=== PATIENT | female | born 1995 | race Caucasian/White ===

== ENCOUNTER 2024-06-14 12:27 | Day surgery (SDC) | payer MEDICAID, SELFPAY ==
--- NOTE | 2024-06-14 12:47 | US_ITS ---
[address] [address] Patient Name: LILLY VASQUEZ MRN: [id number] date: 1995 Sex: F Assigned Patient Location: [place] Current Patient Location: [place] Accession/Order Number: [id number] Exam Date: 06/14/2024 12:50 Report Date: 06/14/2024 13:42 At the request of: MARIAM BECKER Procedure: US biopsy FNA EXAMINATION: US biopsy FNA HISTORY: thyroid nodule COMPARISON: No relevant comparison available. TECHNIQUE: After obtaining informed consent, an ultrasound-guided biopsy was performed in the usual sterile manner. FINDINGS: IMAGING: Ultrasound BIOPSY NEEDLE: 25-gauge 2 inch SPECIMEN TYPE, #, LOCATION: 3 fine-needle aspirates, 1 cm right thyroid hypoechogenic nodule MEDICATION: 3 cc 1% buffered lidocaine COMPLICATIONS: None. LABORATORY: Pathology and molecular studies OTHER: Negative. US/US biopsy FNA IMPRESSION: Uneventful ultrasound guided biopsy. The patient was instructed to obtain follow up care and biopsy results from the referring physician. Electronically authenticated by: MAT MTZ Date: 06/14/2024 13:42
[2024-06-14 13:25] VITALS: BP 100/73; PULSE 73; O2SAT 98
[2024-06-14] MEDS: LIDOCAINE HCL 10 ML, SODIUM BICARBONATE 1 MEQ INJ (13:25)
--- NOTE | 2024-06-14 14:47 | SUR.PREOP ---
06/03/24 Pt instructed on procedure, date, time, and prep.
== END 2024-06-14 13:50 | disposition home or self-care (01) ==
LOC: US 12:34
PROVIDERS: Radiology Diagnostic Radiology; PCP Nurse Practitioner Family; Visit Provider Otolaryngology
DX: E04.1 Nontoxic single thyroid nodule (principal)
CPT/HCPCS: 10005; 88108; 88172

== ENCOUNTER 2024-06-21 13:55 | Outpatient (OUT) | payer MEDICAID, SELFPAY ==
--- OUTSIDE RECORDS SUMMARY | 2024-06-21 14:11 | XMS_ITS | CCD ---
Author Organization [facility] Care Team Providers Care Gas Meter Checker Name Role Phone MD Kamaljit [facility] Primary Care Provider DO Cody Evangelista Emergency Provider [phone] B[place]DEN [place] Referring Unavailable KAMALJIT DELANEY Primary Care Unavailable BRAYDEN FALLON Attending Unavailable KAMALJIT DELANEY Annalisa Referring Unavailable KAMALJIT, [facility] Primary Care Unavailable BRAYDEN FALLON Referring Unavailable KAMALJIT DELANEY Fang Primary Care Unavailable Kamaljit TEIXEIRA [facility] Primary Care Provider Merrill PYTHON DEVELOPER, Analisa Gann Unavailable ANALISA LARA Attending Unavailable ANALISA LARA Referring Unavailable ROSMERY BECKER Attending Unavailable ANALISA LARA Referring Unavailable Kamaljit Delaney Fang Primary Care Unavailable MD Kamaljit Delaney Primary Care Provider MD Davis Garcia V Attending Provider [phone] Davis Garcia V Attending Unavailable Davis Garcia V Admitting Unavailable Kamaljit [facility] Primary Care Unavailable Allergies Allergy Classification Reported Allergen(s) Allergy Type Date of Onset Reaction(s) Facility (3 sources) Acetaminophen Drug Allergy 3 [facility] (3 sources) Lamotrigine Allergy to substance 3 [facility] (3 sources) Sertraline Drug Allergy 3 Rash [facility] Medications Current Medications Medication Drug Class(es) Dates Sig (Normalized) Sig (Original) atenolol 25 mg oral tablet (5 sources) beta-Adrenergic Meghann Start: 10-09-2017 take 12.5 mg by mouth twice daily Atenolol Active 12.5 MG PO Twice daily October 09, 2017 1:00am take 0.5 tablet by mouth in the morning atenolol (Tenormin) 25 MG tablet take 1/2 tablet by mouth IN THE MORNING and take 1/2 tablet by mouth BEFORE BEDTIME Active dicyclomine hydrochloride 20 mg oral tablet (2 sources) Anticholinergic Start: 03-25-2022 take 20 mg by mouth four times daily Dicyclomine Active 20 MG PO Four times daily March 25, 2022 12:00am methylPREDNISolone (3 sources) Corticosteroid Start: 04-13-2023 End: 05-31-2024 methylPREDNISolone (Medrol Dospak) 4 MG tablets Indications: Sinus tarsi syndrome of right foot Take as directed on package. 21 tablet 04/13/2023 05/31/2024 Discontinued (Therapy completed) Start: 04-13-2023 methylPREDNISo lone (Medrol Dospak) 4 MG tablets Indications: Sinus tarsi syndrome of right foot Take as directed on package. 21 tablet 04/13/2023 Active ondansetron 4 mg disintegrating oral tablet (2 sources) Serotonin-3 Receptor Antagonist Start: 03-25-2022 Ondansetron Active 4 MG PO every 6 to 8 hours March 25, 2022 12:00am Completed/Discontinued Medications Medication Drug Class(es) Dates Sig (Normalized) Sig (Original) famotidine 20 mg oral tablet (2 sources) Histamine-2 Receptor Antagonist Start: 11-21-2017 End: 04-09-2018 take 1 tablet by mouth twice daily Famotidine (Pepcid) 20 mg Tablet Discontinued 20 MG PO Twice daily November 21, 2017 12:00am April 09, 2018 12:12pm promethazine hydrochloride 25 mg oral tablet (2 sources) Phenothiazine Start: 10-09-2017 End: 11-21-2017 take 12.5 mg by mouth every four to six hours Promethazine Discontinued 12.5 MG PO EVERY 4-6 HOURS October 09, 2017 1:00am November 21, 2017 12:10am 24 hr venlafaxine 37.5 mg extended release oral capsule (2 sources) Serotonin and Norepinephrine Reuptake Inhibitor Start: 04-13-2018 End: 03-25-2022 take 37.5 mg by mouth once daily Venlafaxine Discontinued 37.5 MG PO Daily April 13, 2018 12:00am March 25, 2022 6:49pm Problems Active Problems Problem Classification Problem Date Documented Da te Episodic/Chronic Abdominal pain (2 sources) Abdominal pain; Translations: [Unspecified abdominal pain] 03-25-2022 Episodic Acute and chronic tonsillitis (2 sources) Hypertrophy of tonsils; Translations: [Hypertrophy of tonsils] 05-31-2024 Chronic Anxiety disorders (3 sources) Anxiety state; Translations: [Generalized anxiety disorder] Onset: 3 04-13-2023 Chronic Cancer of cervix (3 sources) Low grade squamous intraepithelial lesion on cervical Papanicolaou smear; Translations: [Low grade squamous intraepithelial lesion on cytologic smear of cervix (LGSIL)] Onset: 4 05-23-2024 Episodic Cardiac and circulatory congenital anomalies (3 sources) Congenital subaortic stenosis; Translations: [Congenital subaortic stenosis] Onset: 8 05-23-2024 Chronic Conduction disorders (3 sources) Long QT syndrome; Translations: [Long QT syndrome] Onset: 0 04-13-2023 Chronic Contraceptive and procreative management (1 source) Presence of (intrauterine) contraceptive device; Translations: [Presence of (intrauterine) contraceptive device] Onset: 4 Episodic Deficiency and other anemia (3 sources) Iron deficiency anemia; Translations: [Iron deficiency anemia, unspecified] Onset: 4 05-23-2024 Episodic Esophageal disorders (3 sources) Gastroesophageal reflux disease without esophagitis; Translations: [Gastro-esophageal reflux disease without esophagitis] Onset: 4 05-23-2024 Chronic Headache; including migraine (3 sources) Migraine without aura, not refractory ; Translations: [Migraine without aura, not intractable, without status migrainosus] Onset: 4 05-23-2024 Chronic Malaise and fatigue (3 sources) Fatigue; Translations: [Chronic fatigue, unspecified] Onset: 1 04-13-2023 Chronic Malaise and fatigue (2 sources) Fatigue; Translations: [Other fatigue] 10-09-2017 Episodic Mood disorders (11 sources) Recurrent major depression; Translations: [Major depressive disorder, recurrent, unspecified] Onset: 0 04-10-2018 Chronic Nausea and vomiting (2 sources) Nausea; Translations: [Nausea] 10-09-2017 Episodic Nonspecific chest pain (5 sources) Atypical chest pain; Translations: [Other chest pain] Onset: 8 11-21-2017 Episodic Nutritional deficiencies (3 sources) Vitamin D deficiency; Translations: [Vitamin D deficiency, unspecified] Onset: 4 05-23-2024 Chronic Other and ill-defined heart disease (3 sources) Cardiomegaly; Translations: [Cardiomegaly] Onset: 3 04-13-2023 Chronic Other gastrointestinal disorders (2 sources) Oropharyngeal dysphagia; Translations: [Dysphagia, oropharyngeal phase] 05-31-2024 Episodic Other lower respiratory disease (2 sources) Dyspnea; Translations: [Dyspnea, unspecified] 10-09-2017 Episodic Other nervous system disorders (3 sources) Neuropathy; Translations: [Polyneuropathy, unspecified] Onset: 3 04-13-2023 Chronic Other nervous system disorders (3 sources) Chronic pain; Translations: [Other chronic pain] Onset: 3 04-13-2023 Chronic Other nutritional; endocrine; and metabolic disorders (3 sources) Morbid obesity; Translations: [Morbid (severe) obesity due to excess calories] Onset: 3 04-13-2023 Chronic Other nutritional; endocrine; and metabolic disorders (3 sources) 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; 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] Onset: 3 04-13-2023 Chronic Residual codes; unclassified (2 sources) Obstructive sleep apnea syndrome; Translations: [Obstructive sleep apnea (adult) (pediatric)] 05-31-2024 Chronic Thyroid disorders (2 sources) Thyroid nodule; Translations: [Nontoxic single thyroid nodule] 05-31-2024 Chronic Unclassified (1 source) Gynecologic Exam Onset: 4 Past or Other Problems Problem Classification Problem Date Documented Da te Episodic/Chronic Deficiency and other anemia (3 sources) Anemia; Translations: [Anemia, unspecified] Onset: 04-13-2023 04-13-2023 Episodic Fluid and electrolyte disorders (3 sources) Dehydration; Translations: [Dehydration] Onset: 03-12-2018 04-13-2023 Episodic Residual codes; unclassified (3 sources) H/O: heart disorder; Translations: [Personal history of other specified conditions] Onset: 10-10-2022 05-23-2024 Episodic Viral infection (3 sources) Disease caused by 2019-nCoV; Translations: [COVID-19] Onset: 09-18-2020 04-13-2023 Episodic Results Test Name Value Interpretation Reference Range Facility [facility] 06-14-2024 L Specimen: [id number] Received: 06/16/24 Status: CHUCHO Agustin Num: [id number] Spec Type: Cytology Subm Dr: Davis Garcia MD Tissues: A FNA SLIDES NOPATH (LEFT THYROID MID NODULE) Procedures: Cyto Int and Re, PAPSTN/5 Age/ Patient Sex Location Account Attending Physician Marielos Hernandez 29/F [place] [id number] Davis Garcia MD SPEC NUM: [id number] RECD: 06/16/24 STATUS: CHUCHO AGUSTIN NUM: [id number] MELONY: 06/14/[address]: Davis Garcia MD ENTERED: 06/16/24 [facility] DR: Kelsie,ROSMERY Posada MD SPEC TYPE: Cytology DEPT: [facility] ENTERED BY: [id number] RECV BY: [id number] ORDERED: Cyto Int and Re, PAPSTN/5 ORDERED: Cyto Int and Re, PAPSTN/5 Pathological Diagnosis FNA of left thyroid nodule (4 prepared smears and 30 mL of pale pink fluid): Bloody smears and fluid with inflammatory cells degenerated foamy macrophages and red cells consistent with benign cyst fluid. No thyroid epithelial cells are present. [place] category I-nondiagnostic. Clinical Information Left Thyroid Nodule Gross Description Received is 30 ml palepink slightly cloudy fixed fluid for cytology said to have been obtained as Left Thyroid Mid Nodule. ThinPrep preparations are prepared for microscopic examination. Also received are 4 spray fixed smeared slides for pap and a Veracyte vial stored at -20 for microscopic examination. (MG/nh) Specimen: [id number] Received: 06/16/24 Status: CHUCHO Vamsi Num: [id number] Spec Type: Cytology Subm Dr: Davis Garcia MD Tissues: A FNA SLIDES NOPATH (LEFT THYROID MID NODULE) Procedures: Cyto Int and Re, PAPSTN/5 Patient: Marielos Hernandez [id number] (Continued) Specimen: [id number] Received: 06/16/24 (Continued) Signed (signature on file) Claudio Espino MD 06/16/24 1100 Specimen: [id number] Received: 06/16/24 Status: CHUCHO Vamsi Num: [id number] Spec Type: Cytology Subm Dr: Davis Garcia MD Tissues: A FNA SLIDES NOPATH (LEFT THYROID MID NODULE) Procedures: Cyto Int and Re, PAPSTN/5 Patient: Marielos Hernandez [id number] (Continued) Specimen: [id number] Received: 06/16/24 (Continued) CPT Codes 80 8172 and 88 108 Specimen: [id number] Received: 06/16/24 Status: CHUCHO Agustin Num: [id number] Spec Type: Cytology Subm Dr: Davis Garcia MD Tissues: A FNA SLIDES NOPATH (LEFT THYROID MID NODULE) Procedures: Cyto Int and Re, PAPSTN/5 Patient: Marielos Hernandez [id number] (Continued) Signed (signature on file) Claudio Espino MD 06/16/24 1100 Normal [facility] Consent Formson 06-10-2024 Consent Forms [id number] 1.00OTGTIFF Normal [facility] CMP Standardon 05-25-2024 eGFR Non AA >60 Invalid Interpretation Code [facility] Comment on above: Performed By: #### 1 [id number], [id number], 8785801, 4860769, 9320837, 1959163, 3016004 #### [facility] (DEFAULT) [address] [place] [address] eGFR AA >60 Invalid Interpretation Code [facility] Comment on above: Performed By: #### 1 [id number], [id number], 9693301, 5900255, 9918279, 1880591, 9485708 #### [facility] (DEFAULT) [address] [place] [address] 92239 Albumin [Mass/Vol] 4.0 g/dL Normal 3.5-5.0 [facility] Comment on above: Performed By: #### 1 [id number], [id number], 2780225, 7799045, 8882055, 7360941, 7289765 #### [facility] (DEFAULT) [address] [place] [address] 28665 Albumin/Globulin [Mass ratio] 1.2 {ratio} Low 1.4-2.6 [facility] Comment on above: Performed By: #### 1 [id number], [id number], 3361549, 0351134, 3835823, 1085603, 1159012 #### [facility] (DEFAULT) [address] [place] [address] Alk Phos 82 IU/L Normal 32-91 [facility] Comment on above: Performed By: #### 1 [id number], 1428402722, 7736924, 8905058, 3791475, 1722179, 4797876 #### [facility] (DEFAULT) [address] [place] [address] ALT [Catalytic activity/Vol] 22.0 U/L Normal 14.0-54.0 [facility] Comment on above: Performed By: #### 1 [id number], [id number], 6077169, 4337586, 8012546, 8377116, 2474758 #### [facility] (DEFAULT) [address] [place] [address] Anion gap [Moles/Vol] 11.9 mmol/L Normal 5.0-19.0 [facility] Comment on above: Performed By: #### 1 [id number], 0412271265, 1095057, 8967473, 6995528, 3467922, 5735848 #### [facility] (DEFAULT) [address] [place] [address] AST [Catalytic activity/Vol] 18 U/L Normal 15-41 [facility] Comment on above: Performed By: #### 1 [id number], 6736723860, 0904278, 1263616, 0432177, 5861775, 8516515 #### [facility] (DEFAULT) [address] [place] [address] Bili Total 0.4 mg/dL Normal 0.3-1.2 [facility] Comment on above: Performed By: #### 1 [id number], 5295287627, 8982819, 2577605, 4065587, 6633983, 2846913 #### [facility] (DEFAULT) [address] [place] [address] 13049 Calcium [Mass/Vol] 8.8 mg/dL Low 8.9-10.3 [facility] Comment on above: Performed By: #### 1 [id number], 1515382347, 4818502, 0958840, 3203589, 2691703, 8046450 #### [facility] (DEFAULT) [address] [place] [address] 91641 Chloride [Moles/Vol] 103 mmol/L Normal 101-111 [facility] Comment on above: Performed By: #### 1 [id number], 1691053284, 6532031, 6123800, 2349448, 5629600, 0805610 #### [facility] (DEFAULT) [address] [place] [address] CO2 [Moles/Vol] 25 mmol/L Normal 21-32 [facility] Comment on above: Performed By: #### 1 [id number], 1506089795, 0434331, 3407839, 8842000, 6044220, 1501314 #### [facility] (DEFAULT) [address] [place] [address] 94265 Creatinine [Mass/Vol] 0.66 mg/dL Normal 0.60-1.30 [facility] Comment on above: Performed By: #### 1 [id number], 7669983418, 0470202, 1708010, 7155417, 8479231, 7227372 #### [facility] (DEFAULT) [address] [place] [address] 10710 Globulin (S) [Mass/Vol] 3.3 g/dL Normal 1.5-4.3 [facility] Comment on above: Performed By: #### 1 [id number], 9893524487, 1076195, 6711757, 9388274, 8952856, 0805368 #### [facility] (DEFAULT) [address] [place] [address] Glucose [Mass/Vol] 106.0 mg/dL Normal 74.0-118.0 [facility] Comment on above: Performed By: #### 1 [id number], 0749198958, 0398519, 6927930, 1808337, 5980564, 5375199 #### [facility] (DEFAULT) [address] [place] [address] 41744 Osmolality 272 mOsm/L Invalid Interpretation Code [facility] Comment on above: Performed By: #### 1 [id number], 4927969213, 1622190, 0883423, 4838970, 0189431, 8692973 #### [facility] (DEFAULT) [address] [place] [address] 45198 Potassium [Moles/Vol] 3.9 mmol/L Normal 3.6-5.1 [facility] Comment on above: Performed By: #### 1 [id number], 9447123417, 5011911, 5765882, 2448403, 3811110, 6224885 #### [facility] (DEFAULT) [address] [place] [address] 72359 Protein [Mass/Vol] 7.3 g/dL Normal 6.5-8.1 [facility] Comment on above: Performed By: #### 1 [id number], 1499353708, 1499992, 0721321, 3874522, 4599542, 9906880 #### [facility] (DEFAULT) [address] [place] [address] 76472 Sodium [Moles/Vol] 136.0 mmol/L Normal 136.0-144.0 [facility] Comment on above: Performed By: #### 1 [id number], 9816728027, 8200922, 8326654, 6411868, 0024628, 2348271 #### [facility] (DEFAULT) [address] [place] [address] 80951 Urea nitrogen [Mass/Vol] 11 mg/dL Normal 8-26 [facility] Comment on above: Performed By: #### 1 [id number], 1994181651, 8035778, 8128367, 6432824, 4523502, 0069563 #### [facility] (DEFAULT) [address] [place] [address] 15714 Urea nitrogen/Creatinine [Mass ratio] 16.6 mg/mg High 4.6-16.2 [facility] Comment on above: Performed By: #### 1 [id number], 5034538349, 8686068, 0070056, 6643373, 3048845, 7610660 #### [facility] (DEFAULT) [address] [place] [address] 25689 GGTon 05-25-2024 Gamma glutamyl transferase [Catalytic activity/Vol] 29.0 U/L Normal 7.0-50.0 [facility] Comment on above: Performed By: #### 1 [id number], 5949496979, 1898976, 9820314, 8862523, 3845528, 7599373 #### [facility] (DEFAULT) [address] [place] [address] 54038 Iron Levelon 05-25-2024 Iron [Mass/Vol] 26.0 ug/dL Low 28.0-170.0 [facility] Comment on above: Performed By: #### 1 [id number], 4165907024, 5919397, 8686188, 3025391, 2173126, 6915616 #### [facility] (DEFAULT) [address] [place] [address] 60750 LDHon 05-25-2024 LDH 114.0 IU/L Normal 98.0-192.0 [facility] Comment on above: Performed By: #### 1 [id number], 4558679354, 9060148, 1240804, 6362747, 5495532, 9742568 #### [facility] (DEFAULT) [address] [place] [address] 98740 Lipid Panel Standardon 05-25 Cholesterol [Mass/Vol] 180.0 mg/dL Normal 66.0-200.0 [facility] Comment on above: Performed By: #### 1 [id number], 6708274190, 0998376, 1167920, 0548813, 8780965, 4177986 #### [facility] (DEFAULT) [address] [place] [address] 49132 Cholesterol in HDL [Mass/Vol] 34 mg/dL Low 40-71 [facility] Comment on above: Performed By: #### 1 [id number], 3384744789, 3310816, 9554262, 1361770, 6392064, 9514985 #### [facility] (DEFAULT) [address] [place] [address] 31272 Cholesterol in LDL [Mass/Vol] 125 mg/dL High 1-100 [facility] Comment on above: Performed By: #### 1 [id number], 6798245029, 9590952, 8788876, 0351394, 5181085, 7339714 #### [facility] (DEFAULT) [address] [place] [address] 97263 Cholesterol.total/Chol esterol in HDL [Mass ratio] 5.2 {ratio} High 0.0-4.5 [facility] Comment on above: Performed By: #### 1 [id number], 8023583429, 6741570, 4242542, 1870321, 6968945, 5929319 #### [facility] (DEFAULT) [address] [place] [address] 86487 Triglyceride [Mass/Vol] 105.0 mg/dL Normal 0.0-150.0 [facility] Comment on above: Performed By: #### 1 [id number], 7755181483, 8216843, 0097252, 1734036, 4898330, 7035452 #### [facility] (DEFAULT) [address] [place] [address] 86135 VLDL. 21 mg/dL Normal 5-40 [facility] Comment on above: Performed By: #### 1 [id number], 6929450779, 2684816, 7762305, 9707120, 8606149, 5302711 #### [facility] (DEFAULT) [address] [place] [address] 41230 Phoson 05-25-2024 Phosphate [Mass/Vol] 3.6 mg/dL Normal 2.5-4.6 [facility] Comment on above: Performed By: #### 1 [id number], 9522977389, 6145223, 0382139, 2597437, 3746636, 1837982 #### [facility] (DEFAULT) [address] [place] [address] 34850 US THYROIDon 05-25-2024 US THYROID US - US NECK THYROID SOFT TISSUE Reason for exam: Enlarged thyroid Technique: Ultrasound of the thyroid and lower neck was performed, with color flow Doppler and spectral analysis. Comparison: None. FINDINGS: Right lobe: Normal size and parenchymal echogenicity.No evidence of any mass, cyst or shadowing calcification. Left lobe: Normal size and parenchymal echogenicity.a hypoechoic, circumscribed nodule is noted in the posterior aspect of the left mid lobe, without shadowing, wider than tall, measuring 1.9 x 0.9 x 0.6 cm. Isthmus: Normal size and parenchymal echogenicity.No evidence of any mass, cyst or shadowing calcification. Lymph nodes: Negative for lymphadenopathy. Measurements: Impression: 1.9 cm left lobe nodule, TI-RADS 4. Recommendation: Fine-needle aspiration biopsy is recommended of the left lobe mass. Reference: ACR white paper 2017. Followup: TR3 lesion: Thyroid US at 1, 3 and 5 years. TR4 lesion: Thyroid US at 1, 2, 3 and 5 years. TR5 lesion: Thyroid ultrasound every year for up to 5 years. Dictated on: 05/25/2024 6:28 PM This report has been electronically signed and approved by the interpreting Radiologist. Electronically Signed Fazal Villanueva M.D. 2024-05-25 18:31:56 Normal Not Available Uric Acidon 05-25-2024 Urate [Mass/Vol] 7.2 mg/dL Normal 2.6-8.0 [facility] Comment on above: Performed By: #### 1 [id number], [id number], 8288873, 6492814, 1278628, 1139706, 1429769 #### [facility] (DEFAULT) [address] [place] [address] Cytologyon 04-05-2024 Cytology Normal [facility] Comment on above: Result Comment: [facility] [address] [place] [address] Gynecologic Cytology Consultation Patient Name:MARIELOS HERNANDEZ:1995 (Age: 28)Gender:FTaken:4Reported:4Physician(s):Marii Fallon M.D. ([phone])Copy To: Rec. #:[id number]: #[id number] Final Cytologic Interpretation ThinPrep Pap Test (Cervical): Satisfactory for evaluation. A transformation zone component is present. NEGATIVE FOR INTRAEPITHELIAL LESION OR MALIGNANCY. cecilia/04/12/2024 Interpretation performed at [facility], [address] [place] [address], License number: [id number]. Electronically Signed Out By NKECHI Li(ASCP) Date of Last Menstrual Period: (None Given) Other Clinical Conditions: Z01.419 Life Enrichment Assistant exam wo/abn findings Source of Specimen ThinPrep Pap Test (Cervical) Thin Prep Pap (ROLLWAY WORKER) Fee Code(s): G0145 The Pap test is a screening test with an inherent, but low, probability of error. The Pap test is primarily effective for the diagnosis and prevention of squamous cell carcinoma. Regular screening is critical for prevention. ThinPrep liquid-based slides, which meet the Supervisor Film Processing criteria for automated screening, have been screened by the [employer] (as of 05/17/07) along with an additional manual rescreening by a residential property tax appraiser and, if indicated, by a pathologist. US PELVIC WITH TRANSVAGINALo n 03-22-2024 US PELVIC WITH TRANSVAGINAL US PELVIC WITH TRANSVAGINAL PELVIC ULTRASOUND HISTORY: IUD (intrauterine device) in place. Heavy cycle with blood clots. COMPARISON: Pelvic ultrasound 04/12/2021 TECHNIQUE: Transabdominal imaging. Transvaginal imaging performed for better delineation of the adnexal and endometrial contents. FINDINGS: Uterus has a normal appearance. Uterus measures 7.0 x 5.5 x 3.2 cm. Endometrium is homogeneous and measures 1.3 cm. IUD is not visualized in the provided sonographic images. Nabothian cysts within the cervix. No uterine fibroids. Right ovary : 3.0 x 3.0 x 2.0 cm. Normal appearance. Doppler flow was present within the ovary. Left ovary : 3.5 x 2.7 x 2.0 cm. Normal appearance. Doppler flow was present within the ovary. There are no appreciable adnexal masses. There is no appreciable free pelvic fluid. __ IMPRESSION: IUD not visualized within the provided sonographic images. Abdominal radiograph could be beneficial to assess if the IUD has been expelled from the body or is intraperitoneal Approved by Resident Davis Prince MD on 03/22/2024 2:14 PM I, Jac Suarez MD have personally reviewed the image(s) and agree with and/or edited the report Finalized by Jac Suarez MD on 03/22/2024 3:35 PM Normal [facility] Albumin [Mass/volume] in Ser um or PlasmaOrdered By: Cody Evangelista on 03-25-2022 Albumin [Mass/Vol] 3.9 g/dL 3.2-5.5 [facility] Automated erythrocytes count in urine sediment (number/area)Ordered By: Cody Evangelista on 03-25-2022 RBC Auto (Urine sed) [#/Area] 3-4 [HPF] 0-4 [facility] Automated leukocytes count i n urine sediment (number/area)Ordered By: Cody Evangelista on 03-25-2022 WBC Auto (Urine sed) [#/Area] 1-2 [HPF] 0-4 [facility] Basophils Auto (Bld) [#/Vol] Ordered By: Cody Evangelista on 03-25-2022 Basophils (Bld) [#/Vol] 0.1 10*3/uL 0.0-0.2 [facility] Basophils/100 WBC Auto (Bld) Ordered By: Cody Evangelista on 03-25-2022 Basophils/100 WBC (Bld) 0.9 % . [facility] Bilirubin Test strip Ql (U)O rdered By: Cody Evangelista on 03-25-2022 Bilirubin Ql (U) Negative Negative [facility] Blood anisocytosis detection Ordered By: Cody Evangelista on 03-25-2022 Anisocytosis Ql (Bld) Slight [facility] Blood hemoglobin measurement (mass/volume)Ordered By: Cody Evangelista on 03-25-2022 Hemoglobin (Bld) [Mass/Vol] 10.7 g/dL 11.8-15.4 [facility] Blood leukocytes automated c ount (number/volume)Ordered By: Cody Evangelista on 03-25-2022 WBC (Bld) [#/Vol] 12.7 10*3/uL 4.5-11.0 [facility] Color Auto (U)Ordered By: Cecil Evangelista on 03-25-2022 Color (U) [place] Yellow [facility] Creatinine and Glomerular fi ltration rate.predicted panel (S/P/Bld)Ordered By: Cody Evangelista on 03-25-2022 Creatinine [Mass/Vol] 0.64 mg/dL 0.44-1.03 [facility] Direct bilirubin measurement Ordered By: Cody Evangelista on 03-25-2022 Bilirubin.direct [Mass/Vol] mg/dL 0.0-0.4 [facility] Eosinophils Auto (Bld) [#/Vo l]Ordered By: Cody Evangelista on 03-25-2022 Eosinophils (Bld) [#/Vol] 0.1 10*3/uL 0.0-0.45 [facility] Eosinophils/100 WBC Auto (Bl d)Ordered By: Cody Evangelista on 03-25-2022 Eosinophils/100 WBC (Bld) 0.4 % . [facility] Erythrocyte distribution wid th Auto (RBC) [Ratio]Ordered By: Cody Evangelista on 03-25-2022 Erythrocyte distribution width (RBC) [Ratio] 16.9 % 11.9-15.3 [facility] Estimated glomerular filtrat ion rate (GFR) non- AmericanOrdered By: Cody Evangelista on 03-25-2022 GFR/1.73 sq M.predicted among non-blacks MDRD (S/P/Bld) [Vol rate/Area] > 60 mL/Min [facility] Globulin Calc (S) [Mass/Vol] Ordered By: Cody Evangelista on 03-25-2022 Globulin (S) [Mass/Vol] 3.0 g/dL [facility] HCG ( test) IA.rapi d Ql (U)Ordered By: Cody Evangelista on 03-25-2022 HCG ( test) Ql (U) Negative [facility] Hematocrit Auto (Bld) [Volum e fraction]Ordered By: Cody Evangelista on 03-25-2022 Hematocrit (Bld) [Volume fraction] 34.7 % 34.0-46.4 [facility] Ketones Auto test strip (U) [Mass/Vol]Ordered By: Cody Evangelista on 03-25-2022 Ketones (U) [Mass/Vol] Negative Negative Fi [facility] Laboratory - Chemistry and C hemistry - challengeOrdered By: Cody Evangelista on 03-25-2022 Lipase [Catalytic activity/Vol] 35.0 U/L 22-51 [facility] Laboratory - Hematology and Cell countsOrdered By: Cody Evangelista on 03-25-2022 Nucleated RBC/100 WBC (Bld) [Ratio] 0.1 % 0-0.5 [facility] Laboratory - UrinalysisOrder ed By: Cody Evangelista on 03-25-2022 Hyaline casts LM Ql (Urine sed) None seen [LPF] 0-8 [facility] Lymphocytes Auto (Bld) [#/Vo l]Ordered By: Cody Evangelista on 03-25-2022 Lymphocytes (Bld) [#/Vol] 2.5 10*3/uL 1.00-4.8 [facility] Lymphocytes/100 WBC Auto (Bl d)Ordered By: Cody Evangelista on 03-25-2022 Lymphocytes/100 WBC (Bld) 19.8 % . [facility] MCH Auto (RBC) [Entitic mass ]Ordered By: Cody Evangelista on 03-25-2022 MCH (RBC) [Entitic mass] 21.2 pg 24.7-34.3 [facility] MCHC Auto (RBC) [Mass/Vol]Or dered By: Cody Evangelista on 03-25-2022 MCHC (RBC) [Mass/Vol] 30.8 g/dL 32.0-35.0 [facility] MCV Auto (RBC) [Entitic vol] Ordered By: Cody Evangelista on 03-25-2022 MCV (RBC) [Entitic vol] 69.0 fL 80-100 [facility] Monocytes Auto (Bld) [#/Vol] Ordered By: Cody Evangelista on 03-25-2022 Monocytes (Bld) [#/Vol] 0.6 10*3/uL 0.0-0.8 [facility] Monocytes/100 WBC Auto (Bld) Ordered By: Cody Evangelista on 03-25-2022 Monocytes/100 WBC (Bld) 5.1 % . [facility] Neutrophils Auto (Bld) [#/Vo l]Ordered By: Cody Evangelista on 03-25-2022 Neutrophils (Bld) [#/Vol] 9.3 10*3/uL 1.8-7.7 [facility] Neutrophils/100 WBC Auto (Bl d)Ordered By: Cody Evangelista on 03-25-2022 Neutrophils/100 WBC (Bld) 73.8 % . [facility] Nitrite Test strip Ql (U)Ord ered By: Cody Evangelista on 03-25-2022 Nitrite Ql (U) Negative Negative [facility] No Panel InformationOrdered By: Cody Evangelista on 03-25-2022 Estimated GFR () > 60 mL/Min [facility] Comment on above: GFR estimated refere nce range: According to KDOQI guidelines, <60 ml/min/1.73m2 is sufficient to diagnose a patient with chronic kidney disease. Microcytosis Slight [facility] Creatinine Clearance (Chem 158.14 [facility] Platelet Estimate Normal Normal [facility] Platelet Morphology Comment Normal Normal [facility] Platelet mean volume Auto (B ld) [Entitic vol]Ordered By: Cody Evangelista on 03-25-2022 Platelet mean volume (Bld) [Entitic vol] 8.2 fL 6.3-10.7 [facility] Platelets Auto (Bld) [#/Vol] Ordered By: Cody Evangelista on 03-25-2022 Platelets (Bld) [#/Vol] 295 10*3/uL 150-450 [facility] Protein Auto test strip (U) [Mass/Vol]Ordered By: Cody Evangelista on 03-25-2022 Protein (U) [Mass/Vol] Negative Negative [facility] Protein [Mass/volume] in Ser um or PlasmaOrdered By: Cody Evangelista on 03-25-2022 Protein [Mass/Vol] 6.9 g/dL 6.1-7.9 [facility] RBC Auto (Bld) [#/Vol]Ordere d By: Cody Evangelista on 03-25-2022 RBC (Bld) [#/Vol] 5.03 10*6/uL 3.60-5.00 [facility] RBC morphologyOrdered By: Cecil Evangelista on 03-25-2022 RBC morphology finding Nom (Bld) N/A [facility] Serum or plasma alanine rodriguez otransferase measurement without P-5'-P (enzymatic activiOrdered By: Cody Evangelista on 03-25-2022 ALT No additional P-5'-P [Catalytic activity/Vol] 28 U/L 10-60 [facility] Serum or plasma albumin/glob ulin mass ratioOrdered By: Cody Evangelista on 03-25-2022 Albumin/Globulin [Mass ratio] 1.3 {ratio} [facility] Serum or plasma alkaline juany sphatase measurement (enzymatic activity/volume)Ordered By: Cody Evangelista on 03-25-2022 ALP [Catalytic activity/Vol] 91 U/L 32-92 [facility] Serum or plasma aspartate am inotransferase measurement (enzymatic activity/volume)Ordered By: Cody Evangelista on 03-25-2022 AST [Catalytic activity/Vol] 16 U/L 10-42 [facility] Serum or plasma calcium diana urement (mass/volume)Ordered By: Cody Evangelista on 03-25-2022 Calcium [Mass/Vol] 9.1 mg/dL 8.2-10.2 [facility] Serum or plasma chloride renate surement (moles/volume)Ordered By: Cody Evangelista on 03-25-2022 Chloride [Moles/Vol] 103 mmol/L 95-114 [facility] Serum or plasma glucose diana urement (mass/volume)Ordered By: Cody Evangelista on 03-25-2022 Glucose [Mass/Vol] 100 mg/dL 70-100 [facility] Comment on above: ADA recommended refe rence range Random Glucose Reference Range is dependent on time and content of last meal. Glucose of more than 200 mg/dL in a nonstressed, ambulatory subject supports the diagnosis of Diabetes Mellitus. Serum or plasma non-glucuron idated bilirubin measurement (mass/volume)Ordered By: Cody Evangelista on 03-25-2022 Bilirubin.indirect [Mass/Vol] TNP [facility] Comment on above: Test not performed Serum or plasma potassium me asurement (moles/volume)Ordered By: Cody Evangelista on 03-25-2022 Potassium [Moles/Vol] 4.2 mmol/L 3.5-5.1 [facility] Serum or plasma sodium measu rement (moles/volume)Ordered By: Cody Evangelista on 03-25-2022 Sodium [Moles/Vol] 136 mmol/L 136-146 [facility] Serum or plasma total biliru bin measurement (mass/volume)Ordered By: Cody Evangelista on 03-25-2022 Bilirubin [Mass/Vol] 0.4 mg/dL 0.3-1.2 [facility] Serum or plasma total carbon dioxide measurement (moles/volume)Ordered By: Cody Evangelista on 03-25-2022 CO2 [Moles/Vol] 24.0 mmol/L 22.0-30.0 [facility] Serum or plasma urea nitroge n measurement (mass/volume)Ordered By: Cody Evangelista on 03-25-2022 Urea nitrogen [Mass/Vol] 11 mg/dL 9-23 [facility] Specific gravity Auto test s trip (U) [Rel density]Ordered By: Cody Evangelista on 03-25-2022 Specific gravity (U) [Rel density] 1.024 1.001-1.030 [facility] Squamous epithelial cells de tection in urine sediment by light microscopyOrdered By: Cody Evangelista on 03-25-2022 Epithelial cells.squamous LM Ql (Urine sed) 3-4 [HPF] 0-2 [facility] Urine bacteria detection by automated methodOrdered By: Cody Evangelista on 03-25-2022 Bacteria Auto Ql (U) 1+ None Seen [facility] Urine clarity by refractomet ry automatedOrdered By: Cody Evangelista on 03-25-2022 Clarity Refractometry automated (U) Clear Clear [facility] Urine glucose measurement by automated test strip (mass/volume)Ordered By: Cody Evangelista on 03-25-2022 Glucose Auto test strip (U) [Mass/Vol] Normal mg/dL Normal [facility] Urine hemoglobin detection b y automated test stripOrdered By: Cody Evangelista on 03-25-2022 Hemoglobin Auto test strip Ql (U) Negative Negative [facility] Urine leukocyte esterase det ection by automated test stripOrdered By: Cody Evangelista on 03-25-2022 Leukocyte esterase Auto test strip Ql (U) Negative Negative [facility] Urobilinogen Auto test strip (U) [Mass/Vol]Ordered By: Cody Evangelista on 03-25-2022 Urobilinogen (U) [Mass/Vol] Normal mg/dL Normal [facility] pH Auto test strip (U)Ordere d By: Cody Evangelista on 03-25-2022 pH (U) 6.5 [pH] 5.0-9.0 [facility] Complete Blood Count with Au to Diffon 10-14-2021 Basophils (Bld) [#/Vol] 0.06 10*3/uL Normal 0.00-0.20 [facility] Comment on above: Performed By: #### C MP, VITD, TSH reflex FT4, CBCAD #### [facility] [address], [place] [id number] Basophils/100 WBC (Bld) 0.7 % Normal [facility] Comment on above: Performed By: #### C MP, VITD, TSH reflex FT4, CBCAD #### [facility] [address], [place] [id number] Eosinophils (Bld) [#/Vol] 0.07 10*3/uL Normal 0.02-0.50 [facility] Comment on above: Performed By: #### C MP, VITD, TSH reflex FT4, CBCAD #### [facility] [address] [place] [id number] Eosinophils/100 WBC (Bld) 0.8 % Normal [facility] Comment on above: Performed By: #### C MP, VITD, TSH reflex FT4, CBCAD #### [facility] [address], [place] [id number] Erythrocyte distribution width (RBC) [Ratio] 16.4 % High 11.0-15.0 [place] [employer] [place] [employer] Comment on above: Performed By: #### C MP, VITD, TSH reflex FT4, CBCAD #### [facility] [address], [place] [id number] Hematocrit (Bld) [Volume fraction] 37.2 % Normal 35.0-47.0 [facility] Comment on above: Performed By: #### C MP, VITD, TSH reflex FT4, CBCAD #### [facility] [address], [place] [id number] Hemoglobin (Bld) [Mass/Vol] 11.1 g/dL Low 11.6-15.5 [facility] Comment on above: Performed By: #### C MP, VITD, TSH reflex FT4, CBCAD #### [facility] [address], [place] [id number] Lymphocytes (Bld) [#/Vol] 2.3 10*3/uL Normal 0.9-3.9 [facility] Comment on above: Performed By: #### C MP, VITD, TSH reflex FT4, CBCAD #### [facility] [address], [place] [id number] Lymphocytes/100 WBC (Bld) 25.3 % Normal [facility] Comment on above: Performed By: #### C MP, VITD, TSH reflex FT4, CBCAD #### [facility] [address], [place] [id number] MCH (RBC) [Entitic mass] 21.9 pg Low 27.0-33.0 [facility] Comment on above: Performed By: #### C MP, VITD, TSH reflex FT4, CBCAD #### [facility] [address], [place] [id number] MCHC (RBC) [Mass/Vol] 29.8 g/dL Low 32.0-36.0 [facility] Comment on above: Performed By: #### C MP, VITD, TSH reflex FT4, CBCAD #### [facility] [address], [place] [id number] MCV (RBC) [Entitic vol] 73 fL Low 80-100 [facility] Comment on above: Performed By: #### C MP, VITD, TSH reflex FT4, CBCAD #### [facility] [address], [place] [id number] Monocytes (Bld) [#/Vol] 0.4 10*3/uL Normal 0.2-0.9 [facility] Comment on above: Performed By: #### C MP, VITD, TSH reflex FT4, CBCAD #### [facility] [address], [place] [id number] Monocytes/100 WBC (Bld) 4.5 % Normal [facility] Comment on above: Performed By: #### C MP, VITD, TSH reflex FT4, CBCAD #### [facility] [address], [place] [id number] Neutrophils (Bld) [#/Vol] 6.3 10*3/uL Normal 1.5-7.8 [facility] Comment on above: Performed By: #### C MP, VITD, TSH reflex FT4, CBCAD #### [facility] [address], [place] [id number] Neutrophils/100 WBC (Bld) 68.4 % Normal [facility] Comment on above: Performed By: #### C MP, VITD, TSH reflex FT4, CBCAD #### [facility] [address], [place] [id number] Platelet mean volume (Bld) [Entitic vol] 10.50 fL Normal 7.50-12.50 [facility] Comment on above: Performed By: #### C MP, VITD, TSH reflex FT4, CBCAD #### [facility] [address], [place] [id number] Platelets (Bld) [#/Vol] 271 10*3/uL Normal 140-400 [facility] Comment on above: Performed By: #### C MP, VITD, TSH reflex FT4, CBCAD #### [facility] [address], [place] [id number] RBC (Bld) [#/Vol] 5.07 10*6/uL Normal 3.90-5.20 [facility] Comment on above: Performed By: #### C MP, VITD, TSH reflex FT4, CBCAD #### [facility] [address], [place] [id number] RDW-SD 42.6 fL Normal 37.0-50.0 [facility] [employer] Comment on above: Performed By: #### C MP, VITD, TSH reflex FT4, CBCAD #### [facility] [address], [place] [id number] WBC (Bld) [#/Vol] 9.2 10*3/uL Normal 3.8-11.0 [facility] [place] [employer] Comment on above: Performed By: #### C MP, VITD, TSH reflex FT4, CBCAD #### [facility] [address], [place] [id number] Comprehensive Metabolic Pane ene 10-14-2021 Albumin [Mass/Vol] 4.5 g/dL Normal 3.6-5.1 [facility] [place] [employer] Comment on above: Performed By: #### C MP, VITD, TSH reflex FT4, CBCAD #### [facility] [address], [place] [id number] Albumin/Globulin [Mass ratio] 2.1 {ratio} Normal 1.0-2.5 [facility] [employer] Comment on above: Performed By: #### C MP, VITD, TSH reflex FT4, CBCAD #### [facility] [address], [place] [id number] ALP [Catalytic activity/Vol] 102 U/L Normal 35-119 [facility] [employer] Comment on above: Performed By: #### C MP, VITD, TSH reflex FT4, CBCAD #### [facility] [address], [place] [id number] ALT [Catalytic activity/Vol] 19 U/L Normal 6-33 [facility] [employer] Comment on above: Result Comment: 07/31 Female reference range changed. Performed By: #### C MP, VITD, TSH reflex FT4, CBCAD #### [facility] [address], [place] [id number] Anion gap [Moles/Vol] 18 mmol/L Normal 12-20 [facility] Comment on above: Result Comment: Effe ctive 09/05/2019 reference range changed. Performed By: #### C MP, VITD, TSH reflex FT4, CBCAD #### [facility] [address], [place] [id number] AST [Catalytic activity/Vol] 13 U/L Normal 9-34 [facility] Comment on above: Performed By: #### C MP, VITD, TSH reflex FT4, CBCAD #### [facility] [address], [place] [id number] BUN/CREA 20 Ratio Normal 6-22 [facility] Comment on above: Performed By: #### C MP, VITD, TSH reflex FT4, CBCAD #### [facility] [address], [place] [id number] Calcium [Mass/Vol] 9.1 mg/dL Normal 8.6-10.2 [facility] Comment on above: Performed By: #### C MP, VITD, TSH reflex FT4, CBCAD #### [facility] [address], [place] [id number] Chloride [Moles/Vol] 105 mmol/L Normal 98-107 [facility] Comment on above: Performed By: #### C MP, VITD, TSH reflex FT4, CBCAD #### [facility] [address], [place] [id number] CO2 [Moles/Vol] 22 mmol/L Normal 20-31 [facility] Comment on above: Performed By: #### C MP, VITD, TSH reflex FT4, CBCAD #### [facility] [address], [place] [id number] Creatinine [Mass/Vol] 0.5 mg/dL Low 0.6-1.4 [facility] Comment on above: Performed By: #### C MP, VITD, TSH reflex FT4, CBCAD #### [facility] [address], [place] [id number] eGFRAA 178 mL/min/1.73m2 Normal >60 [facility] Comment on above: Performed By: #### C MP, VITD, TSH reflex FT4, CBCAD #### [facility] [address], [place] [id number] eGFRNAA 147 mL/min/1.73m2 Normal >60 [facility] [employer] [place] [employer] [place] [employer] Comment on above: Performed By: #### C MP, VITD, TSH reflex FT4, CBCAD #### [facility] [address], [place] [id number] Globulin (S) [Mass/Vol] 2.1 g/dL Normal 1.9-3.7 [facility] [employer] Comment on above: Performed By: #### C MP, VITD, TSH reflex FT4, CBCAD #### [facility] [address], [place] [id number] Glucose [Mass/Vol] 97 mg/dL Normal 65-99 [facility] [place] [employer] [place] [employer] Comment on above: Result Comment: For FASTING Glucose --- ADA reference ranges: Normal 65-99 mg/dl Prediabetes 100-125 Diabetes >/= 126 Performed By: #### C MP, VITD, TSH reflex FT4, CBCAD #### [facility] [address], [place] [id number] Potassium [Moles/Vol] 4.5 mmol/L Normal 3.5-5.5 [facility] Comment on above: Performed By: #### C MP, VITD, TSH reflex FT4, CBCAD #### [facility] [address], [place] [id number] Protein [Mass/Vol] 6.6 g/dL Normal 6.1-8.1 [facility] [employer] [place] [employer] Comment on above: Performed By: #### C MP, VITD, TSH reflex FT4, CBCAD #### [facility] [address], [place] [id number] Sodium [Moles/Vol] 140 mmol/L Normal 135-146 [facility] [place] [employer] Comment on above: Performed By: #### C MP, VITD, TSH reflex FT4, CBCAD #### [facility] [address], [place] [id number] TBIL <0.3 Normal [facility] [employer] [place] [employer] Comment on above: Performed By: #### C MP, VITD, TSH reflex FT4, CBCAD #### [facility] [address], [place] [id number] Urea nitrogen [Mass/Vol] 10 mg/dL Normal 7-25 [facility] Comment on above: Performed By: #### C MP, VITD, TSH reflex FT4, CBCAD #### [facility] [address], [place] [id number] TSH w/ Reflex to Free T4on 0 10-14-2021 TSH 1.970 uIU/mL Normal 0.400-4.500 [facility] [employer] [place] [employer] Comment on above: Performed By: #### C MP, VITD, TSH reflex FT4, CBCAD #### [facility] [address], [place] [id number] Vitamin B12/Folateon 022 Cobalamin (Vitamin B12) [Mass/Vol] 323 pg/mL Normal 211-946 [facility] Comment on above: Performed By: #### B 12/Fol #### [facility] [address], [place] [id number] FOL 6.7 ng/mL Normal >4.7 [facility] Comment on above: Result Comment: Refe rence range change 07/17/2017. Prior reference range F 4.8-37.3 ng/mL, M 4.5-32.2 ng/mL. Performed By: #### B 12/Fol #### [facility] [address], [place] [id number] Vitamin D 25-OHon 10-14-2021 VIT D 25 OH 12 ng/ml Low >29 [facility] Comment on above: Result Comment: Mary Alice min D Status Deficiency <20 ng/mL Insufficiency 20-29 ng/mL Optimal 30-100 ng/mL Possible Toxicity >=150 ng/mL Performed By: #### C MP, VITD, TSH reflex FT4, CBCAD #### [facility] [address], [place] [id number] XR Chest 2 Views*on 10-14-19 22 SARS-CoV-2 (COVID-19) RNA AKUA+probe Ql (Unsp spec) HISTORY: Persistent cough, intermittent SOB, chest pain, h/o COVID FINDINGS: Comparison is made with the prior examination of September 25, 2021. No new infiltrates, consolidation, pulmonary edema, pneumothorax or pleural effusion. Minimal change, interstitial prominence without parenchymal consolidation. IMPRESSION: Stable appearance. No new infiltrates or edema. Report reported and signed by Emmanuel Griggs on 10/14/2021 1141 Normal [facility] [employer] [place] [employer] XR Chest 2 Views*on 09-25-19 SARS-CoV-2 (COVID-19) RNA AKUA+probe Ql (Unsp spec) HISTORY: Cough, SOB, COVID x 2 weeks FINDINGS: Comparison made with prior examination of January 16, 2021. Minimal change. Mild diffuse interstitial prominence and peribronchial thickening apearance of which maybe accentuated by body habitus. No parenchymal consolidation, pleural effusion or pulmonary edema. Normal cardiac silhouette size. IMPRESSION: 1. Minimal change, interstitial, peribronchial prominence, no parenchymal consolidation or infiltrate. Report reported and signed by Emmanuel Griggs on 09/25/2021 1104 Normal [facility] Vital Signs Date Time Vital Sign Value Performing Clinician Facility 05-31-2024 11:34-0400 Body height 162.6 cm Rosmery Becker MD Work Phone: [facility] 05-31-2024 11:34-0400 Body mass index (BMI) [Ratio] 38.45 kg/m2 Rosmery Becker MD Work Phone: [facility] 05-31-2024 11:34-0400 Body weight 101.61 kg Rosmery Becker MD Work Phone: [facility] 05-31-2024 11:34-0400 Diastolic blood pressure 74 mm[Hg] Rosmery Becker MD Work Phone: [facility] 05-31-2024 11:34-0400 Systolic blood pressure 104 mm[Hg] Rosmery Becker MD Work Phone: [facility] 03-25-2022 18:39-0400 Diastolic blood pressure 66 mm[Hg] MD Delaney Mari Work Phone: [facility] 03-25-2022 18:39-0400 Heart rate 70 /min MD Delaney Mari Work Phone: [facility] 03-25-2022 18:39-0400 Respiratory rate 16 /min MD Delaney Mari Work Phone: [facility] 03-25-2022 18:39-0400 SaO2% (BldA) [Mass fraction] 96 % MD Delaney Mari Work Phone: [facility] 03-25-2022 18:39-0400 Systolic blood pressure 112 mm[Hg] MD Delaney Mari Work Phone: [facility] 03-25-2022 15:47-0400 Body temperature 97.3 [degF] MD Delaney Mari Work Phone: [facility] 03-25-2022 15:45-0400 Body height 162.56 cm MD Delaney Mari Work Phone: [facility] 03-25-2022 15:45-0400 Body weight 104.32 kg MD Delaney Mari Work Phone: [facility] Encounters Encounter Date Encounter Type Care Provider Facility Start: 06-14-2024 End: 06-14-2024 ambulatory MD Delaney Mari Work Phone: [facility] Work Phone: Start: 06-14-2024 End: 06-14-2024 Departed Referred MD Delaney Mari Work Phone: [facility] Start: 05-31-2024 End: 05-31-2024 Bamboo flowsheet Rosmery Becker MD Work Phone: [facility] Start: 05-31-2024 End: 05-31-2024 Bamboo flowsheet Rosmery Becker MD Work Phone: [facility] Start: 05-31-2024 End: 05-31-2024 Office outpatient new 45 minutes Rosmery Becker MD Work Phone: [facility] Comment on above: DULCE MARIA (obstructive sle ep apnea) (Primary Dx); Tonsillar hypertrophy; Thyroid nodule (CMS/HCC); Oropharyngeal dysphagia Start: 05-31-2024 End: 05-31-2024 ambulatory ROSMERY BECKER Not Available Start: 05-25-2024 End: 05-25-2024 ambulatory ANALISA LARA Not Available Start: 05-23-2024 End: 05-23-2024 ambulatory ANALISA LARA Not Available Start: 04-06-2024 End: 04-06-2024 ambulatory Delaney Mari Facility:[facility] Start: 04-05-2024 End: 04-05-2024 ambulatory [facility] Start: 04-05-2024 Encounter for gynecological examination (general) (routine) without abnormal findings [facility] Start: 04-05-2024 End: 04-05-2024 ambulatory [facility] Start: 04-05-2024 Encounter for gynecological examination (general) (routine) without abnormal findings [facility] Start: 03-21-2024 End: 03-21-2024 ambulatory [facility] Start: 03-25-2022 End: 03-25-2022 Emergency department patient visit MD Delaney Mari Work Phone: [facility]Emergency Room Procedures Date Procedure Procedure Detail Performing Clinician Start: 03-25-2022 Diagnostic radiograp hy of abdomen MD Delaney Mari Work Phone: Plan of Treatment Date Care Activity Detail Author Start: 05-31-2024 End: 05-31-2024 Patient encounter procedure [facility] Comment on above: Tonsillar hypertroph y; Enlarged thyroid (CMS/HCC); Oropharyngeal dysphagia Start: 05-01-2024 Influenza vaccination Influenz a Vaccine (#1) [facility] Patient Education Abdominal Pain , Adult ED [facility] Work Phone: Patient referral [facility] Work Phone: Immunizations Immunization Date Immunization Notes Care Provider Fa cility 09-06-2023 influenza virus vacc ine, unspecified formulation Rosmery Becker MD Work Phone: [facility] Payers Date Payer Category Payer Self-pay [id number] 2022 Medicaid [place] [employer] [id number] 2022-Present [address] [place] [address] [id number] 2022 Medicaid [id number] 1996 Unknown [id number] 1996 Unknown [id number] 1996 Unknown [id number] 1996 Unknown [id number] 1996 Unknown [id number] 1996 Unknown [id number] Medicaid [place] Advantage [id number] Unknown O [id number] Unknown [id number] Social History Date Type Detail Facility Start: 03-25-2022 Tobacco smoking stat [facility] Never smoked tobacco (finding) [facility] Start: 1995 Sex Assigned At Female F [facility] Start: 04-13-2023 End: 05-31-2024 Tobacco smoking status NHIS Ex-smoker [facility] Start: 08-31-2010 End: 08-31-2015 History of tobacco use Current smoker [facility] Start: 08-31-2010 End: 08-31-2015 History of tobacco use Cigarette Smoker [facility] Start: 04-13-2023 End: 05-31-2024 Cigarettes smoked current (pack per day) - Reported 0.5 [facility] Start: 05-23-2024 End: 05-31-2024 Alcoholic beverage intake Lifetime non-drinker (finding) [facility] Start: 05-23-2024 End: 05-31-2024 Tobacco use panel [facility] Start: 04-10-2023 Education 13 [facility] Start: 04-10-2023 Alcohol Comment Caffeine intak e: 1-2 cups per day coffee [facility] Start: 1995 Sex assigned at Not on file [facility] History of Present illness Narrative 05-31-2024 Rosmery Becker MD - 05/31/2024 11:30 AM EDT Note Date & Type Note Facility 05-31-2024 History of Presen t illness Narrative Subjective Patient ID: Marielos Hernandez is a 28 y.o. female who presents for Enlarged Tonsils (Enlarged Tonsils. Enlarged Thyriod. Ultrasound.) Pt reports she has swelling and tightness in her throat for one year. Snores. No known apnea. Not always rested in the morning. Some PM somnolence. US of the thyroid obtained that shows a [id number] left TR4 nodule. Review of Systems All other systems reviewed and are negative. Family History Problem Relation Name Age of Onset Anxiety disorder Mother Hyperlipidemia Father Bipolar disorder Sister Depression Maternal Grandmother Dementia Paternal Grandmother Active Ambulatory Problems Diagnosis Date Noted Absolute anemia 04/13/2023 Anxiety state (CMS/HCC) 04/13/2023 Bipolar depression (CMS/[facility]) 02/23/2020 Bipolar disorder, current episode mixed, mild (CMS/HCC) 04/13/2023 Cardiac hypertrophy 04/13/2023 Chest pain at rest 10/08/2017 Chronic fatigue 07/07/2021 Dehydration 03/12/2018 COVID-19 09/18/2020 Morbid obesity (CMS/HCC) 04/13/2023 Neuropathy 04/13/2023 Other chronic pain 04/13/2023 Pompe disease (CMS/HCC) 10/10/2022 Prolonged QT syndrome 06/02/2020 H/O prolonged Q-T interval on ECG 10/10/2022 Gastroesophageal reflux disease without esophagitis 05/23/2024 Iron deficiency anemia 05/23/2024 Congenital subaortic stenosis 10/08/2017 LGSIL on Pap smear of cervix 05/23/2024 Migraine without aura and without status migrainosus, not intractable ([facility]) 05/23/2024 Recurrent major depressive disorder (HCC) ([facility]) 05/23/2024 Vitamin D deficiency 05/23/2024 Resolved Ambulatory Problems Diagnosis Date Noted No Resolved Ambulatory Problems Past Medical History: Diagnosis Date COVID 08/2020 Depression ([facility]) History of medical problems Hx of rosacea Mood disorder ([facility]) Prolonged QT interval History reviewed. No pertinent surgical history. Allergies Allergen Reactions Acetaminophen Lamotrigine Sertraline Rash Current Outpatient Medications on File Prior to Visit Medication Sig Dispense Refill atenolol (Tenormin) 25 MG tablet take 1/2 tablet by mouth IN THE MORNING and take 1/2 tablet by mouth BEFORE BEDTIME [DISCONTINUED] methylPREDNISolone (Medrol Dospak) 4 MG tablets Take as directed on package. (Patient not taking: Reported on 05/23/2024) 21 tablet 0 No current facility-administered medications on file prior to visit. Objective Last Recorded Vitals Vitals: 05/31/24 1134 BP: 104/74 ENT Physical Exam Constitutional Appearance: patient appears well-developed, well-nourished and well-groomed, Head and Face Appearance: head appears normal and face appears atraumatic; Ear Ear Canals: right ear canal normal; left ear canal normal; Tympanic Membranes: right tympanic membrane normal; left tympanic membrane normal; Nose External Nose: nares patent bilaterally; external nose normal; Internal Nose: septum normal; Oral Cavity/Oropharynx Tongue: normal; Oral mucosa: normal; Hard palate: normal; Soft palate: normal; Tonsils: bilateral tonsils 3+, Neck Neck: neck normal; neck palpation normal; Thyroid: thyroid normal; Respiratory Inspection: breathing unlabored; normal breathing rate; Auscultation: breath sounds are clear; Cardiovascular Inspection: extremities are warm and well perfused; no peripheral edema present; Auscultation: regular rate and rhythm; Assessment/Plan Diagnoses and all orders for this visit: DULCE MARIA (obstructive sleep apnea) Tonsillar hypertrophy - Ambulatory referral to ENT Thyroid nodule (CMS/HCC) - Ambulatory referral to ENT Oropharyngeal dysphagia - Ambulatory referral to ENT Pt has moderate to severe tonsil hyp and sx c/w DULCE MARIA. Almost certainly, however, her weight is contributing to her DULCE MARIA. Even with tonsillectomy, she may benefit from CPAP. I will arrange a sleep study and recommend aggressive efforts at wt loss. If wt loss achieved and DULCE MARIA sx persist, then tonsillectomy would be the next step. Pt has a moderate risk left thyroid nodule. I will arrange for an US-guided FNA. documented in this encounter [facility] Evaluation note Note Date & Type Note Facility Evaluation note No assessment information availa [facility] Work Phone: Evaluation note Note Date & Type Note Facility Evaluation note Diagnosis DULCE MARIA (obstructive sleep apnea)- Primary Obstructive sleep apnea (adult) (pediatric) Tonsillar hypertrophy Hypertrophy of tonsils alone Thyroid nodule (CMS/HCC) Nontoxic uninodular goiter Oropharyngeal dysphagia Dysphagia, oropharyngeal phase documented in this encounter [facility] Summary Purpose Family History No Family History Records FoundNo Family History Records FoundNo Family History Records FoundNo Family History Records FoundNo Family History Records FoundNo Family History Records FoundNo Family History Records Found Advance Directives No Advanced Directives Records Found Advance Directive Response Recorded Date/ Time Advance Directives No October 09, 2017 9:59pm Chief Complaint and Reason for Visit Chief Complaint upper abd pain Chief Complaint Unknown Additional Source Comments INFORMATION SOURCE (unrecogn ized section and content) DATE CREATED AUTHOR 10/14/2021 [facility] DATE CREATED AUTHOR AUTHOR'S ORGANIZ ATION 03/23/2024 [facility] DATE CREATED AUTHOR AUTHOR'S ORGANIZ ATION 04/07/2024 [facility] DATE CREATED AUTHOR AUTHOR'S ORGANIZ ATION 04/14/2024 [facility] DATE CREATED AUTHOR AUTHOR'S ORGANIZ ATION 06/01/2024 [facility] DATE CREATED AUTHOR AUTHOR'S ORGANIZ ATION 06/12/2024 [facility] DATE CREATED AUTHOR AUTHOR'S ORGANIZ ATION 06/17/2024 [facility] Care Teams (unrecognized sec tion and content) Team Status: Active Member Role Status Dates Delaney Mari MD Primary Care Provider Active Team Status: Inactive Member Role Status Dates Delaney Mari MD Primary Care Provider Active Sta rt: June 14, 2024 End: June 14, 2024 Davis Garcia MD Attending Provider Active Star t: June 14, 2024 End: June 14, 2024 Team Status: Inactive Member Role Status Delaney Mari MD Primary Care Provider Active Cody Evangelista , Emergency Provider Active [employer] Relationship Specialty Start Date End Date Delaney Mari MD [address] [place] [address] PCP - General Family Medicine 01/06/23 Analisa Lara NP [address] [place] [address] Nurse Practitioner Family Medicine 05/23/24 [employer] Relationship Specialty Start Date End Date Delaney Mari MD [address] [place] [address] PCP - General Family Medicine 01/06/23 Analisa Lara NP [address] [place] [address] Nurse Practitioner Family Medicine 05/23/24 Goals (unrecognized section and content) Goals may be documented in a n alternate sectionGoals may be documented in an alternate section Reason for Visit (unrecogniz ed section and content) Reason Comments Enlarged Tonsils Enlarged Tonsils. En larged Thyriod. Ultrasound. Specialty Diagnoses / Procedures Referred By Contac t Referred To Contact Otolaryngology Diagnoses Tonsillar hypertrophy Enlarged thyroid (CMS/HCC) Oropharyngeal dysphagia Thyroid Nodule Found on US Procedures [place] OFFICE/OUTPATIENT NEW HIGH MDM 60 MINUTES Analisa Lara, PHILLIP [address] [place] [address] Rosmery Becker MD [address] [place] [id number] Referral ID Status Reason Start Date Expiration Date V isits Requested Visits Authorized [id number] Closed Specialty Services Required 05/23/2024 11/19/2024 1 1 FOR RECORDS PERTAINING TO PATIENTS WHO ARE OR HAVE BEEN ENROLLED IN A CHEMICAL DEPENDENCY/SUBSTANCEABUSE PROGRAM, SOME INFORMATION MAY BE OMITTED. This clinical summary was aggregated from multiple sources. Caution should be exercised in using it in the provision of clinical care. This summary normalizes information from multiple sources, and as a consequence, information in this document may materially change the coding, format and clinical context of patient data. In addition, data may be omitted in some cases. CLINICAL DECISIONS SHOULD BE BASED ON THE PRIMARY CLINICAL RECORDS. [facility] [employer] provides no warranty or guarantee of the accuracy or completeness of information in this document.
== END 2024-06-21 13:56 | disposition home or self-care (01) ==
LOC: SLEEP 13:55
PROVIDERS: PCP Otolaryngology; Visit Provider Otolaryngology
DX: G47.33 Obstructive sleep apnea (adult) (pediatric) (principal)
CPT/HCPCS: 95806